=== PATIENT | female | born 1965 | race Caucasian/White ===

== ENCOUNTER 2017-09-24 15:58 | Emergency (ER) | payer OTHER ==
[~2017-09-24] VITALS: Ht 157.5 cm; Wt 103.4 kg
[~2017-09-24 15:58] MED LIST: AMARIL; ATACAN; CALAN SR 120MG120 MG; CALAN SR 120MG120 MG PO; GLUCOPHAGE XR500 MG PO; GLUCOTROL; ISOSORBIDE DINI30 MG; LANTUS100 U/ML SQ; LASIX40 MG PO; LEVAQUIN750 MG PO; LEVSIN0.125 MG PO; NEXIUM5 MG PO; NORVAC; PEPCID20 MG PO; PROTONIX40 MG PO; PYRIDIUM200 MG PO; SINGULAIR 10MG10 MG; TRAMADOL HCL-AP1 TAB PO; ZANTAC300 MG PO; ZOFRAN4 MG PO; [UNRECOGNIZED DRUG - OTHER] IJ
[2017-09-25] MEDS ORDERED: ZOFRAN8 MG PO (01:48)
[2017-09-25] MEDS ORDERED: LEVSIN/SL0.125 MG SL (01:48)
[2017-09-25] MEDS ORDERED: CIPRO500 MG/5 M PO (01:48)
[2017-09-25] MEDS ORDERED: PEPCID40 MG PO (01:48)
== END 2017-09-25 01:42 | disposition home or self-care (01) ==
LOC: ER 15:58
DX: K52.9 Noninfective gastroenteritis and colitis, unspecified (principal)

== ENCOUNTER 2018-01-02 11:03 | Emergency (ER) | payer OTHER ==
[~2018-01-02] VITALS: Ht 152.4 cm; Wt 90.7 kg
[~2018-01-02 11:03] MED LIST changes: +CIPRO500 MG/5 M PO; +LEVSIN/SL0.125 MG SL; +PEPCID40 MG PO; +ZOFRAN8 MG PO
== END 2018-01-02 15:34 | disposition home or self-care (01) ==
LOC: ER 11:03
DX: N30.81 Other cystitis with hematuria (principal)

== ENCOUNTER → 2018-03-13 13:59 | Outpatient (CLI) | payer OTHER | END | disposition home or self-care (01) | LOC: LAB 13:59 | DX: N39.0 Urinary tract infection, site not specified (principal); R82.79 Other abnormal findings on microbiological examination of urine ==

== ENCOUNTER 2018-06-04 11:12 | Outpatient (CLI) | payer OTHER | END 2018-06-04 11:14 | disposition home or self-care (01) | LOC: SONOGRAMA 11:12 | DX: E03.8 Other specified hypothyroidism (principal); E04.8 Other specified nontoxic goiter ==

== ENCOUNTER 2018-06-11 07:06 | Outpatient (CLI) | payer OTHER | END 2018-06-11 07:14 | disposition home or self-care (01) | LOC: RAD 07:06 | DX: J44.9 Chronic obstructive pulmonary disease, unspecified (principal) ==

== ENCOUNTER 2018-06-27 09:18 | Outpatient (CLI) | payer OTHER | END 2018-06-27 09:21 | disposition home or self-care (01) | LOC: RAD 09:18 | DX: M46.48 Discitis, unspecified, sacral and sacrococcygeal region (principal) ==

== ENCOUNTER → 2018-06-27 | Outpatient (CLI) | payer OTHER | END | disposition home or self-care (01) | LOC: NUCLEAR 07:34 | DX: E03.8 Other specified hypothyroidism (principal) | CPT/HCPCS: 78013; A9512 ==

== ENCOUNTER → 2019-02-15 | Emergency (ER) | payer OTHER ==
[~2019-02-15] VITALS: Ht 154.9 cm; Wt 95.3 kg
== END | disposition home or self-care (01) ==
LOC: ER 20:11
DX: S93.491A Sprain of other ligament of right ankle, initial encounter (principal); S80.02XA Contusion of left knee, initial encounter; S80.01XA Contusion of right knee, initial encounter; X50.1XXA Overexertion from prolonged static or awkward postures, initial encounter; Y93.01 Activity, walking, marching and hiking; Y92.89 Other specified places as the place of occurrence of the external cause; Y99.8 Other external cause status

== ENCOUNTER 2019-07-08 12:25 | Inpatient (IN) | payer OTHER ==
[~2019-07-08] VITALS: Ht 152.4 cm; Wt 99.8 kg
[2019-07-08] MEDS ORDERED: ZITHROMAX500 MG PO (13:10)
[2019-07-08] MEDS ORDERED: GLIMEPIRIDE4 MG (13:11)
[2019-07-08] MEDS ORDERED: XOPENEX0.63 MG/3 IH (13:11)
[2019-07-08] MEDS ORDERED: DAYTRANA1 EAC2 TOP (13:11)
[2019-07-08] MEDS ORDERED: THEO-24100 MG PO (13:11)
--- NOTE | 2019-07-08 13:12 | NUR ---
PTE REFEIRE DIFICULTAD RESPIRATORIA . PTE DEPENDIENTE DE OXIGENO CON TOS Y [facility] GENER[facility]. DESDE EL JUEVES .
--- NOTE | 2019-07-08 14:15 | NUR ---
PTE EVALUADA POR EL DR MURRAY QUIEN [place]. SE ORIENTA SOBRE EL MISMO, LO CUAL REFIERE ENTENEDER. SE REALIZAN PRUEBAS DE LABORATORIO Y SE ADMINISTRA MEDICAMENTO EDGAR ORDEN MEDICA Y SIGUIENDO MEDIDAS ASEPTICAS. SE NOTIFICA ABG Y TERAPIAS RESPIRATORIAS A [facility] [place]. SE COLOCA CANULA NASAL A 3L/MIN EDGAR ORDEN MEDICA.
--- NOTE | 2019-07-08 15:36 | NUR ---
PACIENTE ALERTA Y ORIENTADA X3. EN UNIDAD DE ASMA RECIBIENDO TERAPIAS RESPIRATORIA. H/L PATENTE Y ERNA DE EDEMA Y ERITEMA. PACIENTE CON CANULA NASAL A 3 LITROS. SE MANTIENE BAJO OBSERVACION POR CAMBIOS SIGNIFICATIVOS.
== END 2019-07-17 10:59 | disposition home or self-care (01) | DRG 202 ==
LOC: ER 12:25 → MEDJ 18:42 → SEC-K 18:42 → SURH 22:04 → MEDJ 22:41
PROVIDERS: ADMIT Internal Medicine Cardiovascular Disease
PROC: 3E0F7GC Introduction of Other Therapeutic Substance into Respiratory Tract, Via Natural or Artificial Opening (ICD-10-PCS; principal; 2019-07-08)
PROC: 4A033R1 Measurement of Arterial Saturation, Peripheral, Percutaneous Approach (ICD-10-PCS; 2019-07-08)
DX: J45.42 Moderate persistent asthma with status asthmaticus (principal); J44.1 Chronic obstructive pulmonary disease with (acute) exacerbation; N39.0 Urinary tract infection, site not specified; E66.01 Morbid (severe) obesity due to excess calories; I10 Essential (primary) hypertension; A08.8 Other specified intestinal infections; F41.1 Generalized anxiety disorder

== ENCOUNTER → 2020-01-31 | Outpatient (CLI) | payer OTHER ==
[~2020-01-31] MED LIST changes: +DAYTRANA1 EAC2 TOP; +GLIMEPIRIDE4 MG; +THEO-24100 MG PO; +XOPENEX0.63 MG/3 IH; +ZITHROMAX500 MG PO
== END | disposition home or self-care (01) ==
LOC: SONOGRAMA 11:20
PROVIDERS: ATTEND Specialist
DX: D21.22 Benign neoplasm of connective and other soft tissue of left lower limb, including hip (principal)

== ENCOUNTER 2020-02-25 11:01 | Outpatient (CLI) | payer OTHER | END 2020-02-25 11:07 | disposition home or self-care (01) | LOC: TOM 11:01 | PROVIDERS: ATTEND Specialist | DX: R22.42 Localized swelling, mass and lump, left lower limb (principal) ==

== ENCOUNTER 2022-10-26 13:19 | Outpatient (CLI) | payer OTHER | END 2022-10-26 13:22 | disposition home or self-care (01) | LOC: RAD 13:19 | PROVIDERS: ATTEND Internal Medicine Cardiovascular Disease | DX: J44.9 Chronic obstructive pulmonary disease, unspecified (principal) ==

== ENCOUNTER 2024-02-12 15:22 | Inpatient (IN) | payer OTHER ==
[~2024-02-12] VITALS: Ht 154.9 cm; Wt 115.2 kg
[2024-02-12] MEDS ORDERED: FARXIGA10 MG PO (15:45)
[2024-02-12] MEDS ORDERED: SINGULAIR10 MG PO (15:46)
[2024-02-12] MEDS ORDERED: TRAYENTA PO (15:46)
[2024-02-12] MEDS ORDERED: TAGAMET HB200 MG PO (15:47)
[2024-02-12] MEDS ORDERED: SYNTHROID100 MCG PO (15:47)
[2024-02-12] MEDS ORDERED: TEOFILINA PO (15:47)
[2024-02-12] MEDS ORDERED: LASIX40 MG PO (15:48)
[2024-02-12] MEDS ORDERED: ISOSORBIDE DINI30 MG PO (15:48)
[2024-02-12] MEDS ORDERED: LIPITOR20 MG PO (15:48)
--- NOTE | 2024-02-12 15:50 | NUR ---
PACIENTE ALERTA Y ORIENTADA X3 QUIEN VERBALIZA QUE DESDE ANOCHE SIENTE DIFICULTAD RESPIRATORIA, PACIENTE VISITA AL CARDIOLOGO DR MCINTYRE QUIEN LE ENVIA A PANCHO DE EMERGENCIASM SE OBSERVAN EXTREMIDADAES INFERIORES CON EDEMA.
[2024-02-12] MEDS ORDERED: FUROsemide 40 MG/4 ML VIAL IV ONE (16:45)
[2024-02-12] MEDS ORDERED: FUROsemide 40 MG/4 ML VIAL ONE (16:48)
--- NOTE | 2024-02-12 16:56 | NUR ---
SE ORIENTA A PACIENTE SOBRE [place] MEDICO, REFIERE ENTENDER. SE REALIZAN MUESTRAS DE LABORATORIO BAJO MEDIDAS ASEPTICAS. SE ADMINISTRA MEDICAMENTO EDGAR ORDEN MEDICA. SE COORDINAN THOMAS X Y CT. SE CONECTA A PACIENTE A MONITOR CARDIACO Y OXIMETRIA DE PULSO. PACIENTE MANEJADA POR .
[2024-02-12 17:24] LABS: HEMATOCRIT 38.7 % (36.0-45.00); MEAN CELL VOLUME 87.8 fL (80.00-100.00); MEAN CORPUSCULAR HEMOGLOBIN 29.4 pg (27.00-32.0); MEAN CORPUSCULAR HGB CONC 33.5 g/dl (32.0-36.0); PLATELET COUNT 171 K/uL (150-450); RED BLOOD COUNT 4.41 M/uL (4.00-6.00); RED CELL DISTRIBUTION WIDTH 14.1 % (11.5-14.5)
[2024-02-12 17:56] LABS: INR 0.96; PARTIAL THROMBOPLASTIN TIME 27.3 SECONDS (22.0-34.0); PROTHROMBIN TIME 10.5 SECONDS (9.0-11.5)
[2024-02-12 17:57] LABS: ALBUMIN 3.3 gm/dL (3.4-5.0); BILIRUBIN TOTAL 0.64 mg/dL (0.3-1.2); CALCIUM 9.2 mg/dL (8.5-10.1); CREATININE SERUM 0.62 mg/dL (0.55-1.02); GFR 97.86; POTASSIUM 3.92 mEq/L (3.5-5.1); TOTAL PROTEIN 6.3 gm/dL (6.4-8.2)
[2024-02-12 18:38] LABS: PH,URINE 5.5 (5.0-8.0); URINE APPEARANCE Cloudy; URINE BILIRRUBIN Negative (NEGATIVE); URINE BLOOD Negative; URINE COLOR Yellow; URINE GLUCOSE Negative (NEGATIVE); URINE KETONE Negative (NEGATIVE); URINE LEUKOCYTE Moderate; URINE NITRATE Positive; URINE PROTEIN Negative (NEGATIVE); URINE UROBILINOGEN 0.2 E.U./dl
[2024-02-12 18:41] LABS: URINE RBC 47.1 uL (0.0-20.8); URINE WBC 427.7 uL (0.0-23.2)
[2024-02-12 19:08] LABS: URINE BACTERIA > 9821.5 uL (0.0-1933); URINE CAST 0.15 uL (0.0-1.40)
[2024-02-12] MEDS ORDERED: KETOROLAC TROMETHAMINE 30 MG VIAL ONE (20:11)
[2024-02-12] MEDS ORDERED: levoFLOXacin IN DEXTROSE 5 % 5 MG/ML PIGGYBAG IV ONE (20:15)
[2024-02-12] MEDS ORDERED: KETOROLAC TROMETHAMINE 30 MG VIAL IV ONE (20:15)
[2024-02-12] MEDS ORDERED: levoFLOXacin IN DEXTROSE 5 % 500MG/100ML PIGGYBAG IV ONE (20:26)
[2024-02-12] MEDS ORDERED: IPRATROPIUM BROMIDE 0.5 MG/2.5 ML AMPUL.NEB IH SCH (21:05)
[2024-02-12] MEDS ORDERED: ACETAMINOPHEN 500 MG GEL..CAP PO PRN (21:15)
[2024-02-12] MEDS ORDERED: IPRATROPIUM BROMIDE 0.5 MG/2.5 ML AMPUL.NEB IH ONE (21:28)
[2024-02-13] MEDS ORDERED: IPRATROPIUM BROMIDE 0.5 MG/2.5 ML AMPUL.NEB IH ONE ×2 (00:16)
[2024-02-13] MEDS ORDERED: FUROsemide 20 MG/2 ML VIAL IV SCH (01:00)
[2024-02-13] MEDS ORDERED: FUROsemide 20 MG/2 ML VIAL ONE (01:12)
[2024-02-13] MEDS ORDERED: LEVOTHYROXINE SODIUM 100 MCG TABLET PO SCH (06:00)
[2024-02-13] MEDS ORDERED: VERAPAMIL HCL 240 MG TABLET.SA PO SCH (09:00)
[2024-02-13] MEDS ORDERED: ENOXAPARIN SODIUM 40 MG/0.4 ML SYRINGE SUBCUTANEO SCH (09:00)
[2024-02-13] MEDS ORDERED: ISOSORBIDE MONONITRATE 30 MG TABLET PO SCH (09:00)
[2024-02-13] MEDS ORDERED: ATORVASTATIN CALCIUM 40 MG TABLET PO SCH (09:00)
[2024-02-13] MEDS ORDERED: FAMOTIDINE/PF 20 MG in 0.9 % SODIUM CHLORIDE 8 ML IV PUSH SCH (09:00)
[2024-02-13] MEDS ORDERED: MONTELUKAST SODIUM 10 MG TABLET PO SCH (17:00)
[2024-02-13] MEDS ORDERED: LACTOBACILLUS ACIDOPHILUS 1 CAP CAP PO SCH (17:00)
[2024-02-13] MEDS ORDERED: levoFLOXacin IN DEXTROSE 5 % 150 ML IV SCH (18:00)
[2024-02-14 08:23] LABS: HEMATOCRIT 36.7 % (36.0-45.00); HEMOGLOBIN 12.2 g/dL (12.0-15.00); MEAN CELL VOLUME 88.3 fL (80.00-100.00); MEAN CORPUSCULAR HEMOGLOBIN 29.3 pg (27.00-32.0); MEAN CORPUSCULAR HGB CONC 33.1 g/dl (32.0-36.0); PLATELET COUNT 167 K/uL (150-450); RED BLOOD COUNT 4.15 M/uL (4.00-6.00); RED CELL DISTRIBUTION WIDTH 14.6 % (11.5-14.5)
[2024-02-14 08:42] LABS: ALBUMIN 3.1 gm/dL (3.4-5.0); BILIRUBIN TOTAL 1.03 mg/dL (0.3-1.2); CALCIUM 8.7 mg/dL (8.5-10.1); CREATININE SERUM 0.73 mg/dL (0.55-1.02); GFR 81.05; GLOBULINA 2.9 G/DL (2.4-3.5); MAGNESIUM 1.8 mg/dL (1.8-2.4); PHOSPHOROUS 3.3 mg/dL (2.5-4.9); POTASSIUM 3.72 mEq/L (3.5-5.1)
[2024-02-14 08:43] LABS: C-REACTIVE PROTEIN 2.15 MG/DL (0.00-0.29)
[2024-02-14] MEDS ORDERED: BUDESONIDE 0.5 MG/2 ML AMPUL.NEB IH SCH (09:00)
[2024-02-14] MEDS ORDERED: DEXTROSE 50 % IN WATER 0.5 G/ML DISP.SYRIN IV PRN (18:30)
[2024-02-14] MEDS ORDERED: INSULIN LISPRO 1,000 UNIT/10 ML UNITS SUBCUTANEO PRN (18:30)
[2024-02-15] MEDS ORDERED: LEVOFLOXACIN750 MG PO (10:26)
[2024-02-15] MEDS ORDERED: SYNTHROID125 MCG PO (10:27)
[2024-02-15] MEDS ORDERED: IPRATROPIU0.2 MG/1 M IH (10:28)
[2024-02-15] MEDS ORDERED: BUDESONIDE0.5 MG/2 M IH (10:28)
[2024-02-15] MEDS ORDERED: INTESTINEX680 M1 PO (10:29)
[2024-02-15 10:50] LABS: URINE APPEARANCE Clear; URINE BILIRRUBIN Negative (NEGATIVE); URINE BLOOD Negative; URINE COLOR Yellow; URINE GLUCOSE Negative (NEGATIVE); URINE KETONE Negative (NEGATIVE); URINE LEUKOCYTE Small; URINE NITRATE Negative; URINE PROTEIN Negative (NEGATIVE); URINE UROBILINOGEN 0.2 E.U./dl
[2024-02-15 10:54] LABS: URINE BACTERIA 1886.1 uL (0.0-1933); URINE EPITHELIAL CELLS 23.5 uL (0.0-38.8); URINE RBC 6.4 uL (0.0-20.8); URINE WBC 147.6 uL (0.0-23.2)
[2024-02-15 10:58] LABS: URINE CAST 0.45 uL (0.0-1.40)
== END 2024-02-15 14:34 | disposition home or self-care (01) | DRG 291 ==
LOC: ER 15:23 → SEC-K 21:33 → SURG 21:33
PROVIDERS: General Practice; Internal Medicine Infectious Disease; ADMIT Internal Medicine; ATTEND Internal Medicine
PROC: BW21ZZZ Computerized Tomography (CT Scan) of Abdomen and Pelvis (ICD-10-PCS; principal; 2024-02-12)
PROC: B24BZZZ Ultrasonography of Heart with Aorta (ICD-10-PCS; 2024-02-13)
PROC: 4A12X4Z Monitoring of Cardiac Electrical Activity, External Approach (ICD-10-PCS; 2024-02-13)
PROC: B54DZZZ Ultrasonography of Bilateral Lower Extremity Veins (ICD-10-PCS; 2024-02-14)
DX: I11.0 Hypertensive heart disease with heart failure (principal); I50.33 Acute on chronic diastolic (congestive) heart failure; N39.0 Urinary tract infection, site not specified; G47.33 Obstructive sleep apnea (adult) (pediatric); B96.1 Klebsiella pneumoniae [K. pneumoniae] as the cause of diseases classified elsewhere; J44.9 Chronic obstructive pulmonary disease, unspecified; E78.5 Hyperlipidemia, unspecified; I27.20 Pulmonary hypertension, unspecified